=== PATIENT | female | born 1965 | race Caucasian/White ===

== ENCOUNTER 2024-01-17 12:13 | Inpatient (IN) | payer MEDICARE, MEDICAID ==
[~2024-01-17] VITALS: Ht 165.1 cm; Wt 84.4 kg
[2024-01-17 12:59] LABS: Basophils # (auto) 0.1 10 ^3/uL (0-0.2); Basophils % (auto) 0.7 % (0.0-2.0); Chloride 102 mmol/L (98-107); Eosinophils # (auto) 0.1 10 ^3/uL (0-0.8); Eosinophils % (auto) 1.3 % (0.0-7.0); Hematocrit 49.6 % (36.0-46.0); Hemoglobin 16.8 g/dL (12.2-16.2); Lymphocytes # (auto) 1.8 10 ^3/uL (0.4-5.4); Lymphocytes % (auto) 19.5 % (10.0-50.0); Mean Corpuscular Hemoglobin 33.1 pg (28.0-32.0); Mean Corpuscular Hgb Conc. 33.8 g/dL (32.0-36.0); Mean Corpuscular Volume 97.8 fL (80.0-100.0); Monocytes # (auto) 0.6 10 ^3/uL (0-1.3); Monocytes % (auto) 6.1 % (0.0-12.0); Neutrophils # (auto) 6.7 10 ^3/uL (1.6-8.6); Neutrophils % (auto) 72.4 % (37.0-80.0); Red Blood Cells 5.07 10^6/uL (4.0-5.20); Red Cell Distribution Width 13.5 % (11.8-14.3); Sodium 139 mmol/L (136-145); White Blood Cell 9.3 10^3/uL (4.4-10.8)
[2024-01-17 13:00] LABS: Anion Gap 8 (5-15); Carbon Dioxide 29 mmol/L (20-30)
[2024-01-17 13:01] LABS: Calcium 10.8 mg/dL (8.7-10.4)
[2024-01-17 13:05] LABS: Glucose 117 mg/dL (74-106)
[2024-01-17 13:06] LABS: BUN/Creatinine Ratio 11.2 (10.0-20.0); Blood Urea Nitrogen 11 mg/dL (9-23)
[2024-01-17 14:51] VITALS: PULSE 60; RESP 20; O2SAT 96
[2024-01-17] MEDS: ONDANSETRON HCL 4 MG/2 ML VIAL IV ONE (15:00)
[2024-01-17] MEDS: hydrALAZINE HCL 20 MG/ML VL IV ONE (15:00)
[2024-01-17] MEDS: MORPHINE SULFATE INJ 2 MG/ml SYRG IV ONE (15:01)
[2024-01-17] MEDS: SODIUM CHLORIDE 0.9% 1,000 ML IV SCH (16:00)
[2024-01-17] MEDS: SODIUM CHLORIDE 0.9% 1,000 ML IV ONE (16:00)
[2024-01-17] MEDS ORDERED: NITROGLYCERIN 0.4 MG SL TAB SL PRN (16:00)
[2024-01-17] MEDS: PANTOPRAZOLE 40 MG/10 ML VIAL INJ IV ONE (16:56)
[2024-01-17 17:14] LABS: Alanine Aminotransferase 26 U/L (7-40); Albumin 4.6 g/dL (3.2-4.8); Alkaline Phosphatase 117 U/L (46-116); Anion Gap 10 (5-15); Aspartate Aminotransferase 68 U/L (13-40); BUN/Creatinine Ratio 11.5 (10.0-20.0); Bilirubin, Total 0.8 mg/dL (0.2-1.0); Blood Urea Nitrogen 12 mg/dL (9-23); Calcium 9.8 mg/dL (8.7-10.4); Carbon Dioxide 25 mmol/L (20-30); Chloride 105 mmol/L (98-107); Glucose 116 mg/dL (74-106); Potassium 3.3 mmol/L (3.5-5.1); Sodium 140 mmol/L (136-145); Total Protein 7.5 g/dL (5.7-8.2)
[2024-01-17] MEDS ORDERED: GABA-1308 PO (18:13)
[2024-01-17] MEDS ORDERED: METO1TAB9 PO (18:13)
[2024-01-17] MEDS ORDERED: PANT1INJ3 IV (18:13)
[2024-01-17] MEDS ORDERED: TACR0.5C15 OR (18:13)
[2024-01-17] MEDS ORDERED: CHOL200031 PO (18:13)
[2024-01-17] MEDS ORDERED: PERCOT PO (18:13)
[2024-01-17] MEDS ORDERED: AMLO1TAB21 PO (18:13)
[2024-01-17] MEDS ORDERED: PRAV20TA3 PO (18:13)
[2024-01-17] MEDS ORDERED: LORA-622 PO (18:13)
[2024-01-17] MEDS ORDERED: TACR1CAP19 OR (18:13)
[2024-01-17] MEDS ORDERED: FAMO20TA10 PO (18:13)
[2024-01-17] MEDS ORDERED: MAGN400T40 PO (18:13)
[2024-01-17] MEDS ORDERED: TRAZ-184 PO (18:13)
[2024-01-17] MEDS: MORPHINE SULFATE INJ 2 MG/ml SYRG IV PRN (19:22)
[2024-01-17] MEDS: ONDANSETRON HCL 4 MG/2 ML VIAL IV PRN (19:24)
[2024-01-17] MEDS: TACROLIMUS 0.5 MG CAP PO SCH (19:55)
[2024-01-17] MEDS: traZODone HCL 50 MG TAB PO SCH (22:12)
[2024-01-17] MEDS: ENOXAPARIN SOD 100 MG/1 ML SYRINGE SC SCH (22:12)
[2024-01-17 22:30] VITALS: RESP 18; O2SAT 98
[2024-01-17 22:47] VITALS: BP 140/80; PULSE 98; RESP 18
[2024-01-17 23:13] VITALS: TEMP 98.3; O2SAT 98
[2024-01-18] VITALS (14 sets, daily range): BP systolic 120–156; BP diastolic 73–91; PULSE 71–119; RESP 17–20; TEMP 98.1–98.4; O2SAT 93–100
[2024-01-18 03:07] LABS: Urine Bacteria None Seen /hpf (None Seen)
[2024-01-18 03:15] LABS: Urine Blood Negative /uL (Negative); Urine Clarity Clear (Clear); Urine Color Yellow (Yellow); Urine Mucus FEW (None Seen); Urine Protein, UAD TRACE (Negative); Urine Specific Gravity 1.023 (1.001-1.035); Urine Urobilinogen 2 mg/dL (Negative); Urine WBC 2 /hpf (0 - 5)
[2024-01-18] MEDS: ACETAMINOPHEN 325 MG TAB PO PRN (04:41)
[2024-01-18] MEDS: hydrALAZINE HCL 20 MG/ML VL IV PRN (05:35)
[2024-01-18] MEDS: POTASSIUM CHL 20 Meq TABLET PO ONE (06:08)
[2024-01-18 06:37] LABS: Basophils # (auto) 0.1 10 ^3/uL (0-0.2); Basophils % (auto) 0.8 % (0.0-2.0); Eosinophils # (auto) 0.2 10 ^3/uL (0-0.8); Eosinophils % (auto) 2.1 % (0.0-7.0); Hematocrit 38.4 % (36.0-46.0); Hemoglobin 13.2 g/dL (12.2-16.2); Lymphocytes # (auto) 1.6 10 ^3/uL (0.4-5.4); Lymphocytes % (auto) 22.7 % (10.0-50.0); Mean Corpuscular Hemoglobin 33.5 pg (28.0-32.0); Mean Corpuscular Hgb Conc. 34.4 g/dL (32.0-36.0); Mean Corpuscular Volume 97.6 fL (80.0-100.0); Monocytes # (auto) 0.5 10 ^3/uL (0-1.3); Monocytes % (auto) 6.6 % (0.0-12.0); Neutrophils # (auto) 4.9 10 ^3/uL (1.6-8.6); Neutrophils % (auto) 67.8 % (37.0-80.0); Nucleated Red Blood Cells % 0.1 %; Red Blood Cells 3.93 10^6/uL (4.0-5.20); White Blood Cell 7.2 10^3/uL (4.4-10.8)
[2024-01-18] MEDS: TACROLIMUS 1 MG CAP PO SCH (06:50)
[2024-01-18 06:55] LABS: Alanine Aminotransferase 22 U/L (7-40); Alkaline Phosphatase 95 U/L (46-116); Anion Gap 9 (5-15); Aspartate Aminotransferase 53 U/L (13-40); BUN/Creatinine Ratio 13.3 (10.0-20.0); Blood Urea Nitrogen 10 mg/dL (9-23); Calcium 8.7 mg/dL (8.7-10.4); Carbon Dioxide 23 mmol/L (20-30); Chloride 107 mmol/L (98-107); Glucose 121 mg/dL (74-106); Potassium 3.3 mmol/L (3.5-5.1); Sodium 139 mmol/L (136-145)
[2024-01-18 06:56] LABS: Bilirubin, Total 0.8 mg/dL (0.2-1.0); Total Protein 6.5 g/dL (5.7-8.2)
[2024-01-18 07:47] LABS: COVID19 ANTIGEN SOFIA FIA NEGATIVE (NEGATIVE); Rapid Influenza A Negative (Negative); Rapid Influenza B Negative (Negative)
[2024-01-18] MEDS: PANTOPRAZOLE 40 MG/10 ML VIAL INJ IV SCH (09:04)
[2024-01-18] MEDS ORDERED: CLOPIDOGREL BISULFATE 75 MG TAB PO ONE (10:15)
[2024-01-18] MEDS: ATORVASTATIN 20 MG TAB PO ONE (13:25)
[2024-01-18] MEDS: LISINOPRIL 5 MG TAB PO ONE (13:26)
[2024-01-18] MEDS: METOPROLOL SUCCINATE XL 50 MG TAB PO ONE (13:26)
[2024-01-18] MEDS: HYDROcodone-ACET 5/325MG TAB PO SCH (13:27)
[2024-01-18] MEDS: IPRATROPIUM BROM 0.5 MG/2.5ML INH SOL NEB SCH (14:49)
[2024-01-18] MEDS: OXYCODONE W/ ACETAMINOPHEN 5/325MG TABLET PO PRN ×2 (14:52→20:37)
[2024-01-18 18:28] LABS: LDL Cholesterol 91 mg/dL (< 100); Triglycerides 212 mg/dL (< 150)
[2024-01-18 18:30] LABS: Cholesterol 155 mg/dL (< 200); HDL Cholesterol 41 mg/dL (40-59)
[2024-01-18] MEDS: ATORVASTATIN 20 MG TAB PO SCH (21:00)
[2024-01-19] VITALS (15 sets, daily range): BP systolic 120–161; BP diastolic 73–97; PULSE 71–97; RESP 14–20; TEMP 97.8–98.2; O2SAT 94–100
[2024-01-19] MEDS ORDERED: diphenhdrAMINE HCL 50 MG/1 ML VL IV PRN (02:45)
[2024-01-19] MEDS: diphenhdrAMINE HCL 50 MG/1 ML VL IV ONE (03:06)
[2024-01-19] MEDS: methylPREDNISolone SOD SUCC 125 MG/2 ML VL IV ONE (03:07)
[2024-01-19 03:59] LABS: Rapid Strep A Screen-Throat Negative
[2024-01-19 07:49] LABS: Basophils # (auto) 0 10 ^3/uL (0-0.2); Basophils % (auto) 0.4 % (0.0-2.0); Eosinophils # (auto) 0.1 10 ^3/uL (0-0.8); Eosinophils % (auto) 0.8 % (0.0-7.0); Hematocrit 44.3 % (36.0-46.0); Hemoglobin 14.6 g/dL (12.2-16.2); Lymphocytes # (auto) 0.6 10 ^3/uL (0.4-5.4); Lymphocytes % (auto) 8.6 % (10.0-50.0); Mean Corpuscular Hemoglobin 32.5 pg (28.0-32.0); Mean Corpuscular Hgb Conc. 32.9 g/dL (32.0-36.0); Mean Corpuscular Volume 98.7 fL (80.0-100.0); Monocytes # (auto) 0.1 10 ^3/uL (0-1.3); Monocytes % (auto) 1.3 % (0.0-12.0); Neutrophils # (auto) 6.3 10 ^3/uL (1.6-8.6); Neutrophils % (auto) 88.9 % (37.0-80.0); Nucleated Red Blood Cells % 0.1 %; Red Blood Cells 4.49 10^6/uL (4.0-5.20); Red Cell Distribution Width 13.8 % (11.8-14.3); White Blood Cell 7.1 10^3/uL (4.4-10.8)
[2024-01-19 07:53] LABS: Alanine Aminotransferase 20 U/L (7-40); Albumin 4.4 g/dL (3.2-4.8); Alkaline Phosphatase 103 U/L (46-116); Anion Gap 9 (5-15); Aspartate Aminotransferase 37 U/L (13-40); Calcium 9.7 mg/dL (8.7-10.4); Carbon Dioxide 24 mmol/L (20-30); Chloride 106 mmol/L (98-107); Glucose 139 mg/dL (74-106); Potassium 3.5 mmol/L (3.5-5.1); Sodium 139 mmol/L (136-145)
[2024-01-19 07:54] LABS: BUN/Creatinine Ratio 7.4 (10.0-20.0); Bilirubin, Total 0.9 mg/dL (0.2-1.0); Blood Urea Nitrogen < 5 mg/dL (9-23); Total Protein 7.3 g/dL (5.7-8.2)
[2024-01-19] MEDS ORDERED: CLOPIDOGREL BISULFATE 75 MG TAB PO SCH (10:00)
[2024-01-19] MEDS: LISINOPRIL 5 MG TAB PO SCH (10:51)
[2024-01-19] MEDS: METOPROLOL SUCCINATE XL 50 MG TAB PO SCH (10:52)
[2024-01-19] MEDS: ASPirin-EC 81 mg tab PO SCH (10:53)
[2024-01-19] MEDS: amLODIPine BESYLATE 5 MG TAB PO SCH (10:54)
[2024-01-19] MEDS: DOCUSATE SOD 100 MG CAP PO PRN (10:54)
[2024-01-19] MEDS: ENOXAPARIN SOD 40 MG/0.4 ML SYRINGE SC SCH (10:55)
[2024-01-19] MEDS ORDERED: AML5T PO (12:11)
[2024-01-19] MEDS ORDERED: LISI-275 PO (12:11)
[2024-01-19] MEDS ORDERED: ATOR20TA50 PO (12:11)
[2024-01-19] MEDS ORDERED: ASPI-543 PO (12:11)
[2024-01-19] MEDS: POTASSIUM EFFERVESENT TAB 25 MEQ PO ONE (12:33)
[2024-01-19] MEDS: OXYCODONE W/ ACETAMINOPHEN 5/325MG TABLET PO PRN (12:33)
== END 2024-01-19 15:00 | disposition home or self-care (01) | DRG 305 ==
LOC: ER 12:13 → EDBD 12:13 → TELE 15:57 → TELE-WESTW 22:30
PROVIDERS: ADMIT Internal Medicine Pulmonary Disease; ATTEND Emergency Medicine
DX: I16.1 Hypertensive emergency (principal); K21.9 Gastro-esophageal reflux disease without esophagitis; E78.5 Hyperlipidemia, unspecified; Z20.822 Contact with and (suspected) exposure to COVID-19; F51.04 Psychophysiologic insomnia; G89.29 Other chronic pain; M54.9 Dorsalgia, unspecified; E87.6 Hypokalemia; E66.9 Obesity, unspecified; Z91.148 Patient's other noncompliance with medication regimen for other reason; Z68.31 Body mass index [BMI] 31.0-31.9, adult
CPT/HCPCS: 36415; 71045; 76705; 80048; 80053; 80061; 81001; 83036; 83735; 84443; 84484; 85025; 85379; 87070; 87426; 87804; 87880; 93005; 93306; 94640; 96374; 96375; G0378; J2405; J2470; J7507